=== PATIENT | male | born 1945 | race African-American/Black ===

== ENCOUNTER 2017-01-17 09:52 | Inpatient (IN) | payer OTHER ==
[~2017-01-17] VITALS: Ht 162.6 cm; Wt 72.8 kg
[2017-01-17 10:18] VITALS: BP 141/87; TEMP 96.4
[2017-01-17 11:40] LABS: PLATELET COUNT 335 K/uL (142-355)
[2017-01-17 12:09] LABS: POTASSIUM 5.2 mmol/L (3.6-5.2)
[2017-01-17 16:00] VITALS: BP 137/72; TEMP 97.6
[2017-01-17 19:34] VITALS: BP 157/71; TEMP 98; Ht 162.6 cm; Wt 72.8 kg
[2017-01-17 20:00] VITALS: BP 142/65; TEMP 97.5
[2017-01-18] VITALS: BP 132/62; TEMP 97.5
[2017-01-18 04:00] VITALS: BP 128/64; TEMP 97.4
[2017-01-18 06:25] LABS: POTASSIUM 4.5 mmol/L (3.6-5.2)
[2017-01-18 06:27] LABS: PLATELET COUNT 320 K/uL (142-355)
[2017-01-18 08:00] VITALS: BP 132/69; TEMP 97.5
[2017-01-18 11:54] VITALS: BP 138/68; TEMP 97.6
[2017-01-18 15:59] VITALS: BP 177/86; TEMP 98.6
[2017-01-18 17:53] LABS: POTASSIUM 4.6 mmol/L (3.6-5.2)
[2017-01-18 20:27] VITALS: BP 158/76; TEMP 97.3
[2017-01-19] VITALS: BP 152/65; TEMP 97.8
[2017-01-19 04:00] VITALS: BP 157/72; TEMP 97.6
[2017-01-19 05:54] LABS: POTASSIUM 4.6 mmol/L (3.6-5.2)
[2017-01-19 06:10] LABS: PLATELET COUNT 338 K/uL (142-355)
[2017-01-19 08:00] VITALS: BP 140/71; TEMP 98.6
[2017-01-19 12:00] VITALS: BP 138/69; TEMP 98.5
[2017-01-19 13:54] LABS: POTASSIUM 4.6 mmol/L (3.6-5.2)
[2017-01-19 16:00] VITALS: BP 136/72; TEMP 98.6
--- NOTE | 2017-01-19 18:17 | NUR ---
[address] CT REPORT REPORTED TO DR ANDERSON AWAITING FURTHER ORDERS
--- NOTE | 2017-01-19 18:23 | NUR ---
1300 DR ANDERSON IN ROOM AT THIS TIME. EDEMA WORSE TO BILAT LOWER EXT COMPARED TO ASSESSMENT YESTERDAY. MADE AWARE. NEW ORDERS REC'D [address] ANDERSON. NEW ORDERS REC'D AND EXPLAINED TO PT VIA INTERPERTER. PT VERBALIZED UNDERSTANDING.
--- NOTE | 2017-01-19 19:09 | NUR ---
1844 DR ANDERSON CALLED BACK WITH NEW ORDERS. REPORTED OFF TO ONCOMING SHIFT. EXPLAINED VIA INTERPERTER PER MARINA TREJO RN
[2017-01-19 20:00] VITALS: BP 173/95; TEMP 98.6
[2017-01-20] VITALS: BP 140/66; TEMP 97.7
[2017-01-20 04:00] VITALS: BP 166/80; TEMP 97.6
[2017-01-20 05:11] LABS: PLATELET COUNT 351 K/uL (142-355)
[2017-01-20 05:22] LABS: POTASSIUM 4.9 mmol/L (3.6-5.2)
[2017-01-20 08:00] VITALS: BP 164/83; TEMP 98
--- NOTE | 2017-01-20 09:34 | NUR ---
0900 [facility] GIVEN PER MD ORDERS INTO RT INNER FA. PT TOLERATED WELL WILL CON'T TO MONITOR
[2017-01-20 12:00] VITALS: BP 166/89; TEMP 98.3
[2017-01-20 16:00] VITALS: BP 160/82; TEMP 98.4
[2017-01-20 20:00] VITALS: BP 146/73; TEMP 97.7
[2017-01-21] VITALS: BP 148/74; TEMP 98.1
[2017-01-21 04:00] VITALS: BP 146/75; TEMP 97.3
[2017-01-21 05:40] LABS: PLATELET COUNT 323 K/uL (142-355)
[2017-01-21 08:00] VITALS: BP 152/74; TEMP 97.7
[2017-01-21 12:30] VITALS: BP 155/79; TEMP 98.6
[2017-01-21 16:00] VITALS: BP 169/87; TEMP 97.8
[2017-01-21 20:00] VITALS: BP 162/81; TEMP 98.1
[2017-01-22] VITALS: BP 167/80; TEMP 98.3
[2017-01-22 02:43] LABS: PLATELET COUNT 275 K/uL (142-355)
[2017-01-22 02:51] LABS: POTASSIUM 4.8 mmol/L (3.6-5.2)
[2017-01-22 04:00] VITALS: BP 164/83; TEMP 98.1
[2017-01-22 08:00] VITALS: BP 163/79; TEMP 97.6
[2017-01-22 12:00] VITALS: BP 146/77; TEMP 97.7
[2017-01-22 16:00] VITALS: BP 153/76; TEMP 97.7
[2017-01-22 20:00] VITALS: BP 163/83; TEMP 98
[2017-01-23] VITALS: BP 144/78; TEMP 97.8
[2017-01-23 04:00] VITALS: BP 159/78; TEMP 97.8
[2017-01-23 05:28] LABS: PLATELET COUNT 257 K/uL (142-355)
[2017-01-23 05:42] LABS: POTASSIUM 4.8 mmol/L (3.6-5.2)
[2017-01-23 08:00] VITALS: BP 147/70; TEMP 98.4
[2017-01-23 12:00] VITALS: BP 154/72; TEMP 97.5
[2017-01-23 16:00] VITALS: BP 130/76; TEMP 98.1
[2017-01-23 20:00] VITALS: BP 163/82; TEMP 97.7
[2017-01-24] VITALS: BP 146/76; TEMP 97.6
[2017-01-24 04:00] VITALS: BP 149/70; TEMP 97.8
[2017-01-24 06:10] LABS: PLATELET COUNT 207 K/uL (142-355)
[2017-01-24 06:30] LABS: POTASSIUM 4.5 mmol/L (3.6-5.2)
[2017-01-24 07:30] VITALS: BP 151/74; TEMP 97.6
--- NOTE | 2017-01-24 08:17 | NUR ---
0750 sputum culture sent to lab. Labeled with date, time, and initials. gave to telecommunication tower technician for processing.
[2017-01-24 12:00] VITALS: BP 152/70; TEMP 97.6
[2017-01-24 16:00] VITALS: BP 172/83; TEMP 97.7
--- NOTE | 2017-01-24 19:28 | NUR ---
1500 Noticed s/s of infiltration. D/C'ED IV. SMALL BANDAGE APPLIED. WARM COMPRESS APPLIED.
--- NOTE | 2017-01-24 19:30 | NUR ---
1610 20 GAUGE IV RESTARTED IN lEFT AC. TEGADERM APPLIED. FLUSHED WELL WITH NS.
[2017-01-24 20:00] VITALS: BP 155/80; TEMP 97.8
[2017-01-25] VITALS: BP 158/77; TEMP 97.6
[2017-01-25 04:00] VITALS: BP 167/84; TEMP 97.7
[2017-01-25 06:29] LABS: POTASSIUM 4.6 mmol/L (3.6-5.2)
[2017-01-25 06:31] LABS: PLATELET COUNT 223 K/uL (142-355)
[2017-01-25 08:00] VITALS: BP 154/76; TEMP 97.6
[2017-01-25 11:50] VITALS: BP 164/83; TEMP 97
[2017-01-25 16:00] VITALS: BP 162/81; TEMP 97.6
[2017-01-25 20:00] VITALS: BP 167/85; TEMP 97
[2017-01-26] VITALS: BP 185/89; TEMP 97.6
--- NOTE | 2017-01-26 03:40 | NUR ---
IV RESTARTED TO PT'S RIGHT FOREARM X 1 STICK WITH A 20G. PT WITH NO COMPLAINTS.
[2017-01-26 04:00] VITALS: BP 175/81; TEMP 97.6
--- NOTE | 2017-01-26 06:48 | NUR ---
BLOOD COLLECTED AND SENT TO LAB.
[2017-01-26 06:59] LABS: PLATELET COUNT 186 K/uL (142-355)
[2017-01-26 08:00] VITALS: BP 158/79; TEMP 97.7
[2017-01-26 12:00] VITALS: BP 154/73; TEMP 97.6
[2017-01-26 16:00] VITALS: BP 183/88; TEMP 98.3
[2017-01-26 20:00] VITALS: BP 153/75; TEMP 98.5
[2017-01-27] VITALS: BP 166/96; TEMP 97.9
[2017-01-27 04:00] VITALS: BP 160/78; TEMP 98.1
[2017-01-27 06:11] LABS: PLATELET COUNT 155 K/uL (142-355)
[2017-01-27 08:00] VITALS: BP 130/86; TEMP 98.4
[2017-01-27 08:56] LABS: POTASSIUM 3.9 mmol/L (3.6-5.2)
[2017-01-27 12:00] VITALS: BP 136/84; TEMP 98.4
[2017-01-27 16:00] VITALS: BP 174/87; TEMP 97.7
[2017-01-27 20:00] VITALS: BP 170/83; TEMP 97.6
[2017-01-28] VITALS: BP 179/91; TEMP 97.9
[2017-01-28 04:00] VITALS: BP 173/81; TEMP 97.8
[2017-01-28 06:09] LABS: PLATELET COUNT 148 K/uL (142-355)
[2017-01-28 06:35] LABS: POTASSIUM 3.8 mmol/L (3.6-5.2)
[2017-01-28 08:00] VITALS: BP 174/89; TEMP 98
[2017-01-28 12:00] VITALS: BP 163/84; TEMP 98.2
[2017-01-28 16:00] VITALS: BP 180/78; TEMP 98.1
[2017-01-28 20:00] VITALS: BP 174/86; TEMP 97.8
[2017-01-29] VITALS: BP 158/82; TEMP 98.1
[2017-01-29 04:00] VITALS: BP 139/77; TEMP 97.8
[2017-01-29 06:19] LABS: PLATELET COUNT 135 K/uL (142-355)
[2017-01-29 06:29] LABS: POTASSIUM 3.7 mmol/L (3.6-5.2)
[2017-01-29 08:00] VITALS: BP 149/81; TEMP 97.6
--- NOTE | 2017-01-29 09:29 | NUR ---
0930 [facility] NOTIFIED CONCERNING UPDATE OF BED. INFORMED NO BED AVAIBLE AT THIS TIME. DR DEE INFORMED
[2017-01-29 12:00] VITALS: BP 152/84; TEMP 98.1
[2017-01-29 16:00] VITALS: BP 150/89; TEMP 98.9
[2017-01-29 20:00] VITALS: BP 157/81; TEMP 98.1
[2017-01-30 00:05] VITALS: BP 169/78; TEMP 97.8
[2017-01-30 04:00] VITALS: BP 162/76; TEMP 97.9
[2017-01-30 05:12] LABS: PLATELET COUNT 134 K/uL (142-355)
[2017-01-30 05:25] LABS: POTASSIUM 4.2 mmol/L (3.6-5.2)
[2017-01-30 08:00] VITALS: BP 163/82; TEMP 97.7
[2017-01-30 12:00] VITALS: BP 180/90; TEMP 97.9
--- NOTE | 2017-01-30 15:10 | NUR ---
TRANSFER [facility] FROM [facility], [facility] CALLED FOR US TO FAX OVER DEMOGRAPHIC SHEET AND H&P. FAXED AT 1930.
--- NOTE | 2017-01-30 17:31 | NUR ---
1720 EMS NOTIFIED OF TRANSFER TO [facility] ROOM W320 DR DE PAZ RECEIVING MD. LANGUAGE LINE ACTIVATED TO TRANSLATE AND EXPLAIN TO PT TRANSFER.
--- NOTE | 2017-01-30 18:00 | NUR ---
REPORT GIVEN TO ELENI GUZMÁN AT [facility] IN [place]. EMS NOTIFIED THAT PT IS READY TO BE TRANSFERRED.
--- NOTE | 2017-01-30 18:20 | NUR ---
PT C/O IV HURTING. IV SITE SLIGHTLY SWOLLEN. IV D/C'D. SITE CARE COMPLETE. MARINA GUZMÁN ATTMEPTED MULTIPLE TIMES TO START IV, AND UNSUCCESSFUL. TOW FEEDER STATED THEY WOULD ATTEMPT TO START IV ON WAY TO [place].
--- NOTE | 2017-01-30 18:35 | NUR ---
[employer] MANAGING [employer]NER TRANSFERRED PT FROM BED TO STRETCHER AND WHEELED OUT AT THIS TIME.
== END 2017-01-30 18:35 | disposition short-term general hospital (02) | DRG 178 ==
LOC: ED 09:52 → MED/SURG 12:55
PROVIDERS: Emergency Medicine; Family Medicine; Internal Medicine
DX: A15.0 Tuberculosis of lung (principal); N17.8 Other acute kidney failure; J18.8 Other pneumonia, unspecified organism; E88.09 Other disorders of plasma-protein metabolism, not elsewhere classified; R11.0 Nausea; R53.1 Weakness
CPT/HCPCS: 36415; 80048; 80053; 80202; 81000; 82040; 82550; 82570; 83735; 83880; 84300; 84484; 84540; 85027; 86480; 86703; 87070; 87205; 87206; 93005; 94640; 94664; 94760; 96366; 96367; 96372; 96374; 99284; G0432; J1644; J1940; J1956; J2405; J3370; J3490; P9047; Q9963

== ENCOUNTER 2017-01-30 18:39 | Outpatient (CLI) | payer OTHER | END 2017-01-30 20:20 | disposition short-term general hospital (02) | LOC: AMB 18:39 | DX: A15.0 Tuberculosis of lung (principal); N17.8 Other acute kidney failure; J18.8 Other pneumonia, unspecified organism; E88.09 Other disorders of plasma-protein metabolism, not elsewhere classified; R11.0 Nausea; R53.1 Weakness | CPT/HCPCS: A0425; A0427 ==